=== PATIENT | male | born 1985 | race Caucasian/White ===

== ENCOUNTER 2021-05-27 08:42 | Emergency (ER) | payer OTHER, SELFPAY ==
--- NOTE | ~2021-05-27 | XR_ITS ---
EXAMINATION: XR wrist LT min 3V DATE: 05/27/2021 09:01 INDICATION: Left wrist injury. TECHNIQUE: 4 views of left wrist were obtained. COMPARISON: None. FINDINGS: Bone alignment is normal. No fracture. Joint spaces are well maintained. IMPRESSION: 1. Normal left wrist. Reviewed, dictated and finalized at location A. IMPRESSION: 1. Normal left wrist.
[2021-05-27 08:54] VITALS: BP 110/56; PULSE 66; RESP 16; TEMP 36.2; O2SAT 100
--- NOTE | 2021-05-27 09:02 | ED.EXTPRO ---
HPI - Extremity Problem General Chief complaint: Extremity Injury, Upper Stated complaint: Left wrist Pain Source: patient Mode of arrival: ambulatory Limitations: no limitations History of Present Illness HPI Narrative: 35-year-old male presented for complaint of left wrist pain after injury yesterday. He states he was playing ice hockey and injured the wrist either from a stick or through falling on the ice with another player. He states it felt normal yesterday but around 0200 he started feeling pain and numbness to the wrist. Endorses mild swelling and bruising to the left dorsal wrist and difficulty squeezing. Denies pain with flexion/extension/twisting movement. He took Tylenol prior to arrival today. Applied ice for short time yesterday. Right hand dominant. Related Data Allergies Allergy/AdvReac Type Severity Reaction Status Date / Time No Known Allergies Allergy Verified 05/27/21 09:13 Review of Systems Review of Systems: CONSTITUTIONAL: Denies body aches, fever, chills EYES: Denies visual changes ENT: Denies rhinorrhea, congestion CARDIOVASCULAR: Denies chest pain, palpitations, or edema. RESPIRATORY: Denies cough or dyspnea. GASTROINTESTINAL: Denies abdominal pain, nausea, vomiting, or diarrhea. SKIN: Denies rash, itching, or wounds. MUSCULOSKELETAL: Left wrist pain NEUROLOGIC: Denies headache, numbness, tingling, or weakness. PSYCH: Denies depression or anxiety. All systems reviewed & are unremarkable except as noted in HPI and below [facility] Comments At time of signature, I have reviewed and agree with nursing past medical, surgical, social and family history unless otherwise noted. Please see nursing chart for further information. There is no relevant family history pertinent to the presenting complaint Exam Narrative: GENERAL: Well-appearing, in no acute distress. HEAD: Normocephalic, atraumatic. EYES: PERRLA, conjunctivae clear NECK: Supple. CHEST: Speaks in full sentences. No respiratory distress. HEART: Regular rate and rhythm. Normal and equal peripheral pulses. EXTREMITIES: Left hand has normal sensation, normal range of motion with flexion/extension/rotation, but endorses pain with movement. Strength left hand 4/5. mild edema and ecchymosis over dorsal aspect of ulna with point tenderness. No open wounds, skin tenting, or obvious deformity; pulse palpable and equal bilaterally, skin warm, dry, pink. Capillary refill less than 3 seconds. SKIN: Warm, dry, no rash. NEURO: Alert and oriented x3. PSYCH: Normal mood and affect Course Course Emergency Course: Patient is aware of diagnosis, understands and agrees to treatment plan. Anticipatory guidance given. Patient agrees to follow-up as directed and is aware of reasons to seek care at the emergency department. Portions of this record may have been created with voice recognition software Level of Care: Express Care Visit Vital Signs Vital signs: Vital Signs Temperature 97.2 F L 05/27/21 08:54 Pulse Rate 66 05/27/21 08:54 Respiratory Rate 16 05/27/21 08:54 Blood Pressure 110/56 L 05/27/21 08:54 Pulse Oximetry 100 05/27/21 08:54 Temperature 97.2 F L 05/27/21 08:54 Pulse Rate 66 05/27/21 08:54 Respiratory Rate 16 05/27/21 08:54 Blood Pressure 110/56 L 05/27/21 08:54 Pulse Oximetry 100 05/27/21 08:54 Reviewed MDM - Extremity (Nontraumatic) MDM Narrative Medical decision making narrative: Presented for left wrist pain after injury. Xray reviewed, unremarkable. Sx c/w contusion. Pt will treat sx and f/u pRN. Differential Diagnosis Differential diagnosis: Likely other (wrist contusion, wrist fracture, wrist sprain/strain) Imaging Data Attestation: I personally reviewed and interpreted this imaging study as follows: My impression: Normal left wrist. Radiologist's impression: Ordering Physician: Shannon Garcia APRN Date of Service: 05/27/21 Procedure(s): XR wrist LT min 3V Accession Number(s): [id number]
== END 2021-05-27 09:40 | disposition home or self-care (01) ==
PROVIDERS: Emergency Provider Nurse Practitioner Family
DX: S60.212A Contusion of left wrist, initial encounter (principal); X58.XXXA Exposure to other specified factors, initial encounter; Y93.22 Activity, ice hockey
CPT/HCPCS: 73110; 99203; G0463